=== PATIENT | female | born 1930 | race Caucasian/White ===

== ENCOUNTER 2018-04-26 14:07 | Emergency (ER) | payer OTHER, MEDICAID ==
[~2018-04-26] VITALS: Ht 152.4 cm; Wt 54.4 kg
[2018-04-26] MEDS ORDERED: AMLO2.5T3 PO (14:48)
[2018-04-26] MEDS ORDERED: NEOMY/BACITRA/POLYMYXIN B OINT UD PACKET TP ONE (15:09)
[2018-04-26] MEDS ORDERED: ACETAMINOPHEN/CODEINE 300-30 MG TABLET ONE (15:17)
[2018-04-26] MEDS: ACETAMINOPHEN/CODEINE 300-30 MG TABLET PO ONE (15:22)
[2018-04-26] MEDS: NEOMY/BACITRA/POLYMYXIN B OINT UD PACKET TP ONE (15:22)
--- NOTE | 2018-04-26 15:25 | NUR ---
MSE CIOMPLETED, PT D/C'D HOME, ACI/RX X1 GIVEN. PT AMBULATED W/O DIFF/TOOK ALL BELONGINGS, PT FAMILY PRESENT AND TO DRIVE PT HOME.
[2018-04-26 15:27] VITALS: BP 155/70
== END 2018-04-26 15:28 | disposition home or self-care (01) ==
LOC: ER 14:07
DX: I83.023 Varicose veins of left lower extremity with ulcer of ankle (principal); L97.329 Non-pressure chronic ulcer of left ankle with unspecified severity; I10 Essential (primary) hypertension
CPT/HCPCS: A4663